=== PATIENT | female | born 1990 | race Caucasian/White ===

== ENCOUNTER 2018-12-13 10:00 | Outpatient (RCR) | payer OTHER | END 2018-12-21 | LOC: OT 10:00 | PROVIDERS: ATTEND Specialist | DX: S59.901A Unspecified injury of right elbow, initial encounter (principal); M25.521 Pain in right elbow; M25.621 Stiffness of right elbow, not elsewhere classified | CPT/HCPCS: 97139 ==

== ENCOUNTER 2021-01-18 11:15 | Emergency (ER) | payer OTHER ==
[~2021-01-18] VITALS: Ht 167.6 cm; Wt 64.0 kg
== END 2021-01-18 13:07 | disposition home or self-care (01) ==
LOC: ER 11:20
DX: S39.82XA Other specified injuries of lower back, initial encounter (principal); W01.0XXA Fall on same level from slipping, tripping and stumbling without subsequent striking against object, initial encounter; Y93.89 Activity, other specified; Z90.49 Acquired absence of other specified parts of digestive tract; Z88.2 Allergy status to sulfonamides
CPT/HCPCS: 72110; 72170; 72220; 81025; 99282